=== PATIENT | male | born 1975 | race Caucasian/White ===

== ENCOUNTER 2019-02-27 10:23 | Emergency (ER) | payer OTHER ==
[2019-02-27 10:33] VITALS: BP 125/80
[2019-02-27] MEDS ORDERED: KETOROLAC 30 MG/1 ML INJ IM ONE (12:09)
--- NOTE | 2019-02-27 12:43 | Emergency Department Report ---
HPI - General Chief Complaint: Back Pain/Injury Time Seen by Provider: 02/27/19 11:28 - HPI HPI: 43-year-old male presents to the emergency department with a complaint of pain from the right side of the neck that radiates down his right arm. He uses the term numbness but his complaint sounds more consistent with some paresthesias as he has a pins and needle sensation and not actual numbness. No restriction to range of motion. There is been going on for the past 3 weeks but really got worse over the past week. He has tried ibuprofen, Goody powder, Tylenol, Olivet balm without any relief. He denies any trauma or injury. The symptoms are causing him to have difficulty getting sleep. He has a past medical history of arthritis. He has a primary care physician, Dr. Shankar, whom he has an appointment with on Wednesday. ED Past Medical Hx - Past Medical History Previous Medical History?: Yes Hx Arthritis: Yes - Surgical History Past Surgical History?: Yes Additional Surgical History: left rotator cuff repair - Social History Smoking Status: Current Every Day Smoker Substance Use Type: Alcohol - Medications Home Medications: Home Medications Medication Instructions Recorded Confirmed Last Taken Type Cyclobenzaprine [Flexeril] 10 mg PO TID PRN #12 tablet 02/27/19 Unknown Rx Ibuprofen [Motrin 600 MG tab] 600 mg PO Q8H PRN #20 tablet 02/27/19 Unknown Rx ED Review of Systems ROS: Stated complaint: NECK/RT ARM NUMB EXTREME PAIN Other details as noted in HPI Comment: All other systems reviewed and negative Constitutional: denies: chills, fever Respiratory: denies: shortness of breath Cardiovascular: denies: chest pain Musculoskeletal: arthralgia, myalgia Skin: denies: rash, lesions Neurological: paresthesias. denies: headache, weakness Physical Exam - Physical Exam Vital Signs: Vital Signs 02/27/19 10:29 Temperature 98.2 F Pulse Rate 63 Respiratory 18 Rate Blood Pressure 125/80 O2 Sat by Pulse 96 Oximetry Physical Exam: GENERAL: The patient is well-developed well-nourished. HENT: Normocephalic. Atraumatic. Patient has moist mucous membranes. EYES: Extraocular motions are intact. Pupils equal reactive to light bilaterally. NECK: Supple. Trachea is midline. No midline tenderness to palpation, step-off or deformity. CHEST/LUNGS: Clear to auscultation. There is no respiratory distress noted. HEART/CARDIOVASCULAR: Regular. There is no tachycardia. There is no murmur. ABDOMEN: There is no abdominal distention. SKIN: Skin is warm and dry. NEURO: The patient is awake, alert, and oriented. The patient is cooperative. The patient has no focal neurologic deficits. Normal speech. MUSCULOSKELETAL: There is no tenderness or deformity. There is no limitation range of motion. Radial pulse +2 over 4 and capillary refill less than 2 seconds to the affected right upper extremity. ED Course Vital Signs 02/27/19 10:29 Temperature 98.2 F Pulse Rate 63 Respiratory 18 Rate Blood Pressure 125/80 O2 Sat by Pulse 96 Oximetry ED Medical Decision Making - Radiology Data Radiology results: image reviewed interpreted by me: X-ray of the cervical spine does not show any fracture, subluxation or any acute process. - Medical Decision Making Patient has a 3 week history of some pain to the right side of the neck radiating down his right arm. He says that he has numbness but he does have sensation and his description is more consistent with paresthesias. He has full range of motion and good muscle strength. He appears neurovascularly intact. X-ray of the cervical spine did not show any fracture, subluxation or any acute process. His symptoms appear consistent with paresthesias versus cervical radiculopathy. Vital signs stable throughout his ED course. The patient will be given a prescription for anti-inflammatories and muscle relaxers and has been given a referral for both an orthopedist and a neurosurgeon. He will return to the emergency Department with any worsening of his symptoms or any acute distress. - Differential Diagnosis paresthesias, cervical radiculopathy, gout, DVT Critical Care Time: No Critical care attestation.: If time is entered above; I have spent that time in minutes in the direct care of this critically ill patient, excluding procedure time. ED Disposition Clinical Impression: Arm paresthesia, right, Neck pain Disposition: - TO HOME OR SELFCARE Is pt being admited?: No Condition: Stable Instructions: Paresthesia (ED), Cervical Radiculopathy (ED) Additional Instructions: Please follow-up with either an orthopedist or a neurosurgeon regarding your neck pain with radiation down the arm. I will give you a referral for both. Return to the emergency Department with any worsening of your symptoms or any acute distress. You have been prescribed a medication that is sedating and therefore should not be taken prior to driving, working, and responsible for children and in no way should be mixed with alcohol of any quantity. Prescriptions: Cyclobenzaprine [Flexeril] 10 mg PO TID PRN #12 tablet PRN Reason: Muscle Spasm Ibuprofen [Motrin 600 MG tab] 600 mg PO Q8H PRN #20 tablet PRN Reason: Pain Referrals: ENRIQUE GARCIA MD [Staff Physician] - 2-3 Days BALDEMAR MONTGOMERY MD [Staff Physician] - 2-3 Days Time of Disposition: 13:12
--- NOTE | 2019-02-27 12:45 | XRay Report ---
XR spine cervical 2-3V INDICATION / CLINICAL INFORMATION: neck pain. COMPARISON: None available. FINDINGS: BONES/JOINT(S): No acute fracture or subluxation. Normal alignment. Mild degenerative disc disease at C4-5 with moderate disc height loss and endplate osteophyte formation. No additional significant deg enerative change. SOFT TISSUES: No significant abnormality. ADDITIONAL FINDINGS: None. Signer Name: Mitch Barrera MD Signed: 02/27/2019 12:41 PM Workstation Name: [id number]
== END 2019-02-27 13:38 | disposition home or self-care (01) ==
LOC: ED 10:23
DX: M54.2 Cervicalgia (principal); R20.2 Paresthesia of skin; M19.90 Unspecified osteoarthritis, unspecified site; F17.200 Nicotine dependence, unspecified, uncomplicated; Z79.899 Other long term (current) drug therapy; Z98.890 Other specified postprocedural states; Z91.048 Other nonmedicinal substance allergy status
CPT/HCPCS: 72040; 96372; 99283; J1885